=== PATIENT | female | born 1985 | race African-American/Black ===

== ENCOUNTER 2016-10-26 10:59 | Emergency (ER) | payer MEDICAID ==
[~2016-10-26] VITALS: Ht 162.6 cm; Wt 52.2 kg
[2016-10-26 11:09] VITALS: BP 93/57
[2016-10-26] MEDS ORDERED: HYDROcodone-ACET 10/325MG TAB PO ONE (12:00)
== END 2016-10-26 12:10 | disposition home or self-care (01) ==
LOC: ER 10:59
DX: S93.401A Sprain of unspecified ligament of right ankle, initial encounter (principal); H92.02 Otalgia, left ear; R39.198 Other difficulties with micturition; Y08.89XA Assault by other specified means, initial encounter; Y93.89 Activity, other specified; Y99.8 Other external cause status; Y92.89 Other specified places as the place of occurrence of the external cause